=== PATIENT | male | born 1980 | race African-American/Black ===

== ENCOUNTER 2019-08-12 14:03 | Emergency (ER) | payer BC ==
[2019-08-12] MEDS ORDERED: ACETAMINOPHEN 325 MG TABLET PO ONE (15:30)
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
[2019-08-12] MEDS ORDERED: MORPHINE SULFATE 10 MG/ML INJ IV ONE ×2 (16:29→23:01)
--- NOTE | 2019-08-12 21:07 | RADIOLOGY REPORT (SQ) ---
MR THORACIC SPINE WITHOUT IV CONTRAST HISTORY: Evaluate for possible compression fracture. COMPARISON: Radiographs from earlier the same day. TECHNIQUE: Multiplanar, multisequence MR imaging of the thoracic spine was performed without the administration of intravenous gadolinium. FINDINGS: There is abnormal T2 bone marrow with compression deformities involving the T9, T11, and T12 vertebral bodies consistent with acute compression fractures. No retropulsion into the spinal canal. No evidence of cord compression. The remaining vertebral bodies and disc spaces are preserved. IMPRESSION: 1. Acute compression fractures of T9, T11, and T12. 2. No evidence of cord compression.
[2019-08-13] MEDS ORDERED: OXYCODONE-ACETAMINOPHEN 5-325 MG TABLET PO ONE (01:35)
[2019-08-13 02:52] VITALS: BP 142/74
== END 2019-08-13 03:37 | disposition short-term general hospital (02) ==
LOC: ER 14:03
DX: S22.000A Wedge compression fracture of unspecified thoracic vertebra, initial encounter for closed fracture (principal); R07.89 Other chest pain; V89.2XXA Person injured in unspecified motor-vehicle accident, traffic, initial encounter
CPT/HCPCS: 96376; 99285; 96374; 72146; 71111; 72070; J2270